=== PATIENT | male | born 2000 | race African-American/Black ===

== ENCOUNTER 2024-12-09 19:40 | Emergency (ER) | payer MEDICARE ==
[~2024-12-09] VITALS: Ht 177.8 cm; Wt 90.0 kg
[2024-12-09] MEDS ORDERED: P20 PO (20:02)
[2024-12-09] MEDS: PREDNISONE 20MG TABLET PO ONE (20:14)
[2024-12-09 20:40] VITALS: PULSE 94; RESP 18; O2SAT 99
[2024-12-09] MEDS: IPRATROPIUM/ALBUTEROL 0.5-3(2.5)MG/3ML NEB HHN ONE (20:40)
[2024-12-09 21:10] VITALS: BP 119/52; PULSE 92; RESP 19; TEMP 36.8; O2SAT 99
== END 2024-12-09 21:22 | disposition home or self-care (01) ==
LOC: ER 19:40
DX: J45.901 Unspecified asthma with (acute) exacerbation (principal); F31.9 Bipolar disorder, unspecified; Z91.018 Allergy to other foods
CPT/HCPCS: 99283; 94640; J7512; 94070; 94664; 98960